=== PATIENT | male | born 1975 | race African-American/Black ===

== ENCOUNTER 2023-08-28 13:26 | Emergency (ER) | payer OTHER ==
[~2023-08-28] VITALS: Ht 175.3 cm; Wt 72.7 kg
[2023-08-28 15:57] VITALS: BP 149/107; PULSE 79; TEMP 99; O2SAT 99
[2023-08-28] MEDS ORDERED: AZIT250T83 PO (15:59)
[2023-08-28] MEDS ORDERED: BENZ-38 PO (15:59)
[2023-08-28] MEDS ORDERED: ALBU8HFA INH (15:59)
[2023-08-28 16:07] VITALS: RESP 17
== END 2023-08-28 16:08 | disposition home or self-care (01) ==
LOC: ER 13:27
DX: J22 Unspecified acute lower respiratory infection (principal); R05.9 Cough, unspecified
CPT/HCPCS: 71045; 99283